=== PATIENT | male | born 1995 | race Caucasian/White ===

== ENCOUNTER 2017-04-25 08:23 | Emergency (ER) | payer OTHER ==
[2017-04-25 08:40] VITALS: BP 124/72
--- NOTE | 2017-04-25 08:52 | UC ---
Respiratory Complaint HPI - HPI Summary HPI Summary: cough x 3 days , runny nose, pnd, sore throat, + fever, chills, body aches - History of Current Complaint Chief Complaint: UCGeneralIllness Stated Complaint: COUGH,FEVER,RN Time Seen by Provider: 04/25/17 08:36 Hx Obtained From: Patient Onset/Duration: Gradual Onset, Lasting Days - 3, Still Present Timing: Constant Severity Initially: Moderate Severity Currently: Moderate Character: Cough: Nonproductive Aggravating Factors: Exertion, Deep Breaths Alleviating Factors: Nothing Associated Signs And Symptoms: Positive: Fever, Chills, URI, Nasal Congestion. Negative: Dyspnea, Pleuritic Chest Pain, Wheezing, Hemoptysis, Dizziness, Calf Pain, Calf Swelling, Edema, Hoarseness, Sinus Discomfort - Allergies/Home Medications Allergies/Adverse Reactions: Allergies Allergy/AdvReac Type Severity Reaction Status Date / Time No Known Allergies Allergy Verified 04/25/17 08:40 Home Medications: Home Medications Methazolamide 25 mg PO DAILY 04/25/17 [History Confirmed 04/25/17] Pseudoephedrine-Guaifenesin [Mucinex D 60-600 mg] 1 tab PO ONCE 04/25/17 [ History Confirmed 04/25/17] PMH/Surg Hx/FS Hx/Imm Hx Endocrine History: Hyperthyroidism Respiratory History: Pneumonia - Surgical History Surgical History: Yes Surgery Procedure, Year, and Place: T&A - Family History Known Family History: Negative: Diabetes - Social History Alcohol Use: Occasionally Substance Use Type: None Smoking Status (MU): Never Smoked Tobacco - Immunization History Vaccination Up to Date: Yes Review of Systems Constitutional: Fever, Chills, Fatigue Skin: Negative Eyes: Negative ENT: Sore Throat, Nasal Discharge Respiratory: Cough Cardiovascular: Negative Gastrointestinal: Negative Is Patient Immunocompromised?: No All Other Systems Reviewed And Are Negative: Yes Physical Exam Triage Information Reviewed: Yes Appearance: Well-Appearing, No Pain Distress, Well-Nourished Vital Signs: Initial Vital Signs Temp 100 F 04/25/17 08:36 Pulse 108 04/25/17 08:36 Resp 20 04/25/17 08:36 BP 124/72 04/25/17 08:36 Pulse Ox 97 04/25/17 08:36 Vital Signs Reviewed: Yes Eye Exam: Normal Eyes: Positive: Conjunctiva Clear ENT: Positive: Normal ENT inspection, Hearing grossly normal, Pharyngeal erythema, Nasal drainage, TMs normal Neck exam: Normal Neck: Positive: Supple, Nontender, No Lymphadenopathy Respiratory: Positive: Chest non-tender, Lungs clear, Normal breath sounds, No respiratory distress Cardiovascular: Positive: No Murmur, Tachycardia Abdominal Exam: Normal Skin Exam: Normal UC Diagnostic Evaluation - Laboratory O2 Sat by Pulse Oximetry: 97 Respiratory Course/Dx - Differential Dx/Diagnosis Provider Diagnoses: influenza Discharge - Discharge Plan Condition: Stable Disposition: HOME Prescriptions: Guaifenesin-Codeine [Cheratussin AC] 10 ml PO Q8H #120 ml MDD 30 ml Patient Education Materials: Influenza (ED) Referrals: CHRIS Arndt [Primary Care Provider] - If Needed Additional Instructions: late for antiviral meds / Tamiflu cont. with rest, increase fluid, may take Tylenol as needed for pain and fever follow up as needed
== END 2017-04-25 08:58 | disposition home or self-care (01) ==
LOC: UCCORT 08:23
DX: J11.1 Influenza due to unidentified influenza virus with other respiratory manifestations (principal)
CPT/HCPCS: 99212; G0463

== ENCOUNTER 2017-12-18 08:21 | Observation (INO) | payer OTHER ==
[~2017-12-18 08:21] MED LIST: Atracurium* 10 MG/ML 10 ML VIAL ONE; Buffered Lidocaine 0.9% SYRIN* 5 ML/SYR SYRINGE INTRADERM ONE; Dexamethasone TAB* 4 MG PO ONE; DiMENhydriNATE IV* 50 MG/ML VIAL IV PUSH PRN; Famotidine IV* 10 MG/ML 2 ML (20 mg) IV ONE; Midazolam* 1 MG/ML 5 ML VIAL (5 MG) ONE; Morphine INJ* 2 MG/ML 1 ML SYRINGE (TWO MG - NEW SYRINGE VERSION) IV PRN; Naloxone* 0.4 MG/ML 1 ML VIAL IV PRN; Ondansetron TAB* 4 MG PO ONE; PROCHLORPERAZINE INJ 5 MG/ML 2 ML VIAL IV PRN; fentaNYL* 50 MCG/ML 2 ML VIAL (100 MCG VIAL) ONE; oxyCODONE/Acetamin 5/325 MG* TAB PO PRN
[2017-12-18] MEDS ORDERED: Famotidine IV* 10 MG/ML 2 ML (20 mg) ONE (08:28)
[2017-12-18] MEDS ORDERED: Ondansetron ODT TAB* 4 MG ONE (08:28)
[2017-12-18] MEDS ORDERED: Dexamethasone TAB* 4 MG ONE (08:29)
[2017-12-18] MEDS ORDERED: Bupivacaine 0.25% EPI 200,000* 30 ML SDV ONE (10:20)
[2017-12-18] MEDS ORDERED: fentaNYL* 50 MCG/ML 2 ML VIAL (100 MCG VIAL) ONE ×2 (10:42→13:31)
[2017-12-18] MEDS ORDERED: Metoprolol Tartrate IV* 1 MG/ML 5 ML VIAL ONE (12:01)
[2017-12-18] MEDS ORDERED: Lidocaine 2% PF * 5 ML VIAL ONE (12:01)
[2017-12-18] MEDS ORDERED: Propofol* 10 MG/ML 20 ML BTL IV PUSH ONE (12:01)
[2017-12-18] MEDS ORDERED: Lidocaine 2% PF* 10 ML AMP ONE (12:01)
[2017-12-18] MEDS ORDERED: PROCHLORPERAZINE INJ 5 MG/ML 2 ML VIAL ONE (12:24)
[2017-12-18] MEDS ORDERED: oxyCODONE/Acetamin 5/325 MG* TAB ONE (13:32)
[2017-12-18] MEDS: fentaNYL* 50 MCG/ML 2 ML VIAL (100 MCG VIAL) IV PRN ×4 (13:40→14:16)
[2017-12-18] MEDS: Calcium Carbonate CHEW TAB* 500 MG (TUMS) PO SCH ×2 (15:46→20:27)
[2017-12-18] MEDS: HYDROcodone/ACET. 7.5/325 LIQ* 15 ML UDC PO PRN ×2 (17:33→21:45)
[2017-12-18] MEDS: Propranolol TAB* 80 MG PO SCH (20:27)
[2017-12-19] MEDS: HYDROcodone/ACET. 7.5/325 LIQ* 15 ML UDC PO PRN ×3 (02:03→10:01)
[2017-12-19 08:05] VITALS: BP 134/72
[2017-12-19] MEDS: Propranolol TAB* 80 MG PO SCH (09:16)
[2017-12-19] MEDS: Calcium Carbonate CHEW TAB* 500 MG (TUMS) PO SCH (09:16)
--- NOTE | 2017-12-19 09:37 | PN ---
Progress Note - Progress Note Date of Service: 12/19/17 Note: Surgery Mr. Swna says he already feels better. He has some incisional pain, but otherwise denies problems. Vital Signs 12/18/17 12/18/17 12/18/17 13:17 13:20 13:25 Temperature 97.7 F Pulse Rate 85 87 77 Respiratory 11 18 Rate Blood Pressure 142/93 146/95 141/90 (mmHg) O2 Sat by Pulse 93 98 97 Oximetry 12/18/17 12/18/17 12/18/17 13:30 13:35 13:39 Temperature Pulse Rate 84 79 Respiratory 27 22 16 Rate Blood Pressure 152/90 141/106 (mmHg) O2 Sat by Pulse 98 98 Oximetry 12/18/17 12/18/17 12/18/17 13:40 13:45 13:58 Temperature Pulse Rate 78 Respiratory 18 14 15 Rate Blood Pressure 134/102 148/96 (mmHg) O2 Sat by Pulse 94 Oximetry 12/18/17 12/18/17 12/18/17 14:00 14:09 14:15 Temperature Pulse Rate 87 84 Respiratory 11 11 18 Rate Blood Pressure 138/96 144/98 (mmHg) O2 Sat by Pulse 94 97 Oximetry 12/18/17 12/18/17 12/18/17 14:16 14:30 14:45 Temperature Pulse Rate 75 66 Respiratory 11 18 10 Rate Blood Pressure 133/97 137/91 (mmHg) O2 Sat by Pulse 98 96 Oximetry 12/18/17 12/18/17 12/18/17 15:41 15:48 16:15 Temperature 98.2 F 98.8 F Pulse Rate 71 67 Respiratory 16 18 Rate Blood Pressure 133/80 125/69 (mmHg) O2 Sat by Pulse 97 97 98 Oximetry 12/18/17 12/18/17 12/18/17 17:24 17:33 19:23 Temperature 98.8 F 98.7 F Pulse Rate 66 69 Respiratory 20 18 16 Rate Blood Pressure 129/75 134/79 (mmHg) O2 Sat by Pulse 99 100 Oximetry 12/18/17 12/18/17 12/18/17 20:28 20:29 20:31 Temperature Pulse Rate Respiratory 20 20 20 Rate Blood Pressure (mmHg) O2 Sat by Pulse Oximetry 12/18/17 12/18/17 12/18/17 21:35 21:45 23:40 Temperature 98.5 F 98.0 F Pulse Rate 62 70 Respiratory 16 18 16 Rate Blood Pressure 118/72 119/74 (mmHg) O2 Sat by Pulse 99 100 Oximetry 12/19/17 12/19/17 12/19/17 00:00 00:12 02:03 Temperature Pulse Rate Respiratory 16 18 Rate Blood Pressure (mmHg) O2 Sat by Pulse 100 Oximetry 12/19/17 12/19/17 12/19/17 04:05 06:03 06:10 Temperature 98.3 F Pulse Rate 71 Respiratory 18 16 18 Rate Blood Pressure 120/78 (mmHg) O2 Sat by Pulse 100 Oximetry 12/19/17 12/19/17 12/19/17 07:50 08:00 08:23 Temperature 98.4 F Pulse Rate 70 Respiratory 18 18 18 Rate Blood Pressure 134/72 (mmHg) O2 Sat by Pulse 100 Oximetry Incision site: clean and dry; no signs infection Neg [place] sign Laboratory Results - last 24 hr 12/18/17 12/18/17 12/19/17 13:51 19:07 01:39 Calcium 9.2 9.3 9.2 12/19/17 07:22 Calcium 9.5 A/P: POD#1 s/p bilateral subtotal thyroidectomy; doing well, can go home and f /u as outpt. [facility]
--- NOTE | 2017-12-19 09:58 | OP ---
CC: [facility]; Dr. Morteza Bernal OPERATIVE SUMMARY: DATE OF OPERATION: 12/18/17 DATE OF : 89 SURGEON: Enma Chauhan MD. APPLICATION DESIGN ENGINEER: DELBERT Marie. PRE-OP DIAGNOSIS: Hyperthyroidism. POST-OP DIAGNOSIS: Hyperthyroidism. OPERATIVE PROCEDURE: Subtotal bilateral thyroidectomy. INDICATIONS: Timo Swan is a 22-year-old male who has been diagnosed with Graves disease that is worsening, prompting the plan for surgical intervention. DESCRIPTION OF PROCEDURE: He was brought to the operating room, placed on the OR table in a supine p osition and given general anesthesia. The neck was prepped and draped in the usual sterile fashion. After infiltrating with local anesthetic, an incision was made along the line that had been marked p reoperatively. Subcutaneous tissue was then divided with electrocautery through the platysma muscle. The flaps were developed superiorly to the thyroid notch and inferiorly to the sternal notch. In th e process of creating the flap superiorly, a buttonhole was made to the skin. This was dealt with at the end of the surgery. The strap muscles were divided along the midline and retracted laterally ove r the right lobe of the thyroid first. At the medial aspect of the superior pole, individual vessels were taken down between LigaSure and clipped. Once the upper pole was freed up, attention was turned to the lower pole. Here, the LigaSure was used to control vessels that approached the gland. Final ly, the middle portion of the gland was approached and here a blunt dissection was used to identify v essels and the superior and inferior pole parathyroids were identified and the recurrent laryngeal ne rve was identified. Once the location of the nerve was ascertained, the gland was amputated from the trachea using electrocautery and leaving behind a small amount of normal thyroid tissue. Then, atten tion was turned to the left side here. The strap muscles were retracted laterally over the gland and again, attention was turned to the medial aspect of the superior pole. Individual vessels were take n down around the superior pole until it was completely freed up and then attention was turned to the lower pole where LigaSure was used to divide vessels here. The middle portion of the gland was diss ected free using primarily blunt dissection and LigaSure dissection. The inferior pole parathyroid h ad been mobilized and freed up from the thyroid gland at the inferior pole and then superior pole par athyroid was identified in the middle portion of the gland and preserved through the surgery. The rec urrent laryngeal nerve was identified and once this was noted to be preserved, the rest of the gland was amputated from the trachea again leaving a small amount of thyroid tissue in situ. Once the glan d was completely off the trachea, it was handed off with the specimen. The wound was inspected for h emostasis. This was controlled with clips and cautery where appropriate and finally a small amount o f Surgicel was left in place on either side of the trachea. Closure was accomplished using 3-0 Vicryl to reapproximate the strap muscles, 4-0 Vicryl was used to reapproximate the platysma muscle and the n the skin of the thyroid incision was closed with 4-0 Prolene in a subcuticular fashion. The button hole injury was cleaned up with sharp dissection and then it was closed in a vertical fashion which g ave the best cosmetic result by first approximating the subcutaneous tissue with 3-0 Vicryl and then closing the skin with 4-0 Vicryl in a subcuticular fashion. Steri-Strips and a dry fluffy dressing w ere applied. All sponge and instrument counts were correct. The patient tolerated the procedure well and was transferred to recovery in a stable condition. [id number]/[facility] #: [id number]
--- NOTE | 2017-12-19 22:55 | DS ---
CC: [facility] DISCHARGE SUMMARY: DATE OF ADMISSION: 12/18/17 DATE OF DISCHARGE: 12/19/17 HOSPITAL COURSE: Timo Swan is a 22-year-old male admitted overnight after bilateral subtotal thyroidectomy done for hyperthyroidism. Overnight, he had no problems and his calciums remained stab le, so he was considered stable for discharge in the morning. He was discharged to home with instruc tions to follow up as an outpatient. [id number]/[facility] #: [id number]
== END 2017-12-19 10:30 | disposition home or self-care (01) ==
LOC: OR 08:21 → SSU 15:00
PROVIDERS: ADMIT Surgery; ATTEND Surgery
PROC: 0GBH0ZZ Excision of Right Thyroid Gland Lobe, Open Approach (ICD-10-PCS; 2017-12-18)
PROC: 0GBG0ZZ Excision of Left Thyroid Gland Lobe, Open Approach (ICD-10-PCS; principal; 2017-12-18 10:00)
DX: E05.00 Thyrotoxicosis with diffuse goiter without thyrotoxic crisis or storm (principal)
CPT/HCPCS: 36415; 82310; A9270-GY; G0378; J0780; J2001; J2250; J2704; J3010; J3490; J8540

== ENCOUNTER 2018-11-23 13:38 | Emergency (ER) | payer OTHER ==
[2018-11-23 14:00] VITALS: BP 129/77
--- NOTE | 2018-11-23 14:10 | UC ---
Laceration HPI - HPI Summary HPI Summary: cut his right index finger 1 hr ago at work cut his finger with a sharp knife , bleeding was stopped by applying pressure and placing a butterfly - History Of Current Complaint Chief Complaint: UCWounds Stated Complaint: WC-RT INDEX FINGER LACERATION Time Seen by Provider: 11/23/18 13:45 Hx Obtained From: Patient Laceration Location: Finger - right index finger Mechanism Of Injury: Sharp Trauma Onset/Duration: Sudden Onset, Lasting Hours - 1, Still Present Severity: Moderate Pain Intensity: 0 Aggravating Factors: Movement - Allergies/Home Medications Allergies/Adverse Reactions: Allergies Allergy/AdvReac Type Severity Reaction Status Date / Time No Known Allergies Allergy Verified 11/23/18 13:59 Home Medications: Home Medications Levothyroxine TAB* [Synthroid TAB*] 33 mcg PO DAILY 11/23/18 [History Confirmed 11/23/18] PMH/Surg Hx/FS Hx/Imm Hx Endocrine History: Thyroid Disease, Hyperthyroidism - Surgical History Surgical History: Yes Surgery Procedure, Year, and Place: T&A - Family History Known Family History: Negative: Diabetes - Social History Alcohol Use: Rare Alcohol Amount: 2 per week Substance Use Type: Marijuana Substance Use Comment - Amount & Last Used: on occasion Smoking Status (MU): Never Smoked Tobacco - Immunization History Most Recent Tetanus Shot: unknown Vaccination Up to Date: Yes Review of Systems All Other Systems Reviewed And Are Negative: Yes Is Patient Immunocompromised?: No Physical Exam Triage Information Reviewed: Yes Appearance: Well-Appearing, No Pain Distress, Well-Nourished Vital Signs: Initial Vital Signs Temp 98.9 F 11/23/18 13:54 Pulse 70 11/23/18 13:54 Resp 16 11/23/18 13:54 BP 129/77 11/23/18 13:54 Pulse Ox 99 11/23/18 13:54 Vital Signs Reviewed: Yes Eye Exam: Normal Eyes: Positive: Conjunctiva Clear ENT: Positive: Normal ENT inspection, Hearing grossly normal, Pharynx normal Neck: Positive: Supple, Nontender, No Lymphadenopathy Respiratory: Positive: Chest non-tender, Lungs clear, Normal breath sounds Cardiovascular: Positive: RRR, No Murmur, Pulses Normal Skin: Positive: Other - right index finger : 1 cm laceration distal phalangs , minimal bleeding Laceration Repair - Laceration Repair 1 Description: Linear Laceration Size After Repair: Length (cm) - 1 Modified For Repair: No Cleansing Completed Via Routine Prep: Yes Irrigation With Pressure Irrigation Device: Yes Closure Material: Skin Adhesive Laceration Course/Dx - Diagnosis Provider Diagnosis: Laceration of finger Discharge ED - Sign-Out/Discharge Documenting (check all that apply): Patient Departure All imaging exams completed and their final reports reviewed: No Studies - Discharge Plan Condition: Stable Disposition: HOME Patient Education Materials: Finger Laceration (ED) Referrals: No Primary Care Phys,NOPCP [Primary Care Provider] - If Needed - Billing Disposition and Condition Condition: STABLE Disposition: Home
[2018-11-23] MEDS ORDERED: Tetan/Diph/Pertus SYR(Tdap)* 0.5 ML SYR(BOOSTRIX) use SYR IM ONE (14:18)
== END 2018-11-23 14:32 | disposition home or self-care (01) ==
LOC: UCCORT 13:38
DX: S61.210A Laceration without foreign body of right index finger without damage to nail, initial encounter (principal); W26.0XXA Contact with knife, initial encounter; Y93.9 Activity, unspecified; Y92.9 Unspecified place or not applicable; Y99.0 Civilian activity done for income or pay; Z23 Encounter for immunization; E05.90 Thyrotoxicosis, unspecified without thyrotoxic crisis or storm
CPT/HCPCS: 12001; 90471; 90715; 99211; G0463